=== PATIENT | male | born 1980 | race African-American/Black ===

== ENCOUNTER 2016-11-20 15:05 | Emergency (ER) | payer OTHER ==
--- NOTE | 2016-11-20 15:31 | EDDOCDS ---
Physician Documentation [facility] Name: Jaden Nava Age: 36 yrs Sex: Male : 1980 Arrival Date: 11/20/2016 Time: 15:05 Bed 8 Private MD: YOVANA Alexis Disposition: 11/20/16 15:25 Discharged to Home/Self Care. Impression: Low back pain, Sciatica, left side. - Condition is Stable. - Discharge Instructions: Back Pain, Adult, Musculoskeletal Pain, Sciatica. - Prescriptions for Ibuprofen 600 mg Oral Tablet - take 1 tablet by ORAL route every 6 hours As needed take with food; 30 tablet. Cyclobenzaprine 10 mg Oral Tablet - take 1 tablet by ORAL route 3 times per day As needed; 15 tablet. - Medication Reconciliation, Local Pharmacy Hours, Work Release Form - 4 day form. - Follow up: YOVANA Alexis; When: 4 - 5 days; Reason: Recheck today's complaints, Continuance of care. - Problem is an acute exacerbation. - Symptoms are unchanged. - Notes: ice 20min an hour Historical: - Allergies: PENICILLINS; - Home Meds: 1. none - PMHx: Hypertension; - PSHx: Appendectomy; Left Shoulder Surgery; Shoulder Arthroscopy- Right; - Social history: Smoking status: Patient states former smoker of tobacco. No barriers to communication noted, The patient speaks fluent Malay, Speaks appropriately for age. - Family history: Not pertinent. - : The pt / caregiver states he / she is not on anticoagulants. Home medication list is obtained from the patient. - Exposure Risk Screening:: None identified. Vital Signs: 11/20 15:07 BP 168 / 78; Pulse 73; Resp 18; Temp 97.6(O); Pulse Ox 98% on R/A; Weight 77.11 kg / lr2 170 lbs (R); Height 5 ft. 6 in. (167.64 cm) (R); Pain 5/10; 15:07 Body Mass Index 27.44 (77.11 kg, 167.64 cm) lr2 Signatures: Arturo Guzman, BAG SHAKER BAG SHAKER Viviana SilverioRN RN aa3 Betty Phillips,NOEMÍ RN kc3 MTDD
--- NOTE | 2016-11-20 15:31 | EDDOCDS ---
Nurse's Notes [facility] Name: Jaden Nava Age: 36 yrs Sex: Male : 1980 Arrival Date: 11/20/2016 Time: 15:05 Bed 8 Private MD: Reuben [facility] Diagnosis: Low back pain;Sciatica, left side Presentation: 11/20 15:09 Presenting complaint: Patient states: back pain radiating down left leg since noon kc3 today. Acute neurological deficits are not present. Mechanism of Injury: No Mechanism of Injury. Adult Sepsis Screening: The patient does not have new or worsening altered mentation. Patient's respiratory rate is less than 22. Systolic blood pressure is greater than 100. Patient has a qSOFA score of 0- Negative Sepsis Screen. Suicide/Homicide risk assessment- the patient denies having any suicidal and/or homicidal ideations and does not present with any other emotional, behavioral or mental health complaints. Status: The patient is an active duty septic tank servicer. Transition of care: patient was not received from another setting of care. 15:09 Acuity: TJ Level 4 kc3 15:09 Method Of Arrival: Walkin/Carried/Asstd kc3 Triage Assessment: 15:11 General: Appears in no apparent distress, comfortable, Behavior is appropriate for age, kc3 cooperative. Pain: Location: back Pain currently is 5 out of 10 on a pain scale. HIV screening NA for this visit Offered previously. Respiratory: No deficits noted. Musculoskeletal: Circulation, motion, and sensation intact. Historical: - Allergies: PENICILLINS; - Home Meds: 1. none - PMHx: Hypertension; - PSHx: Appendectomy; Left Shoulder Surgery; Shoulder Arthroscopy- Right; - Social history: Smoking status: Patient states former smoker of tobacco. No barriers to communication noted, The patient speaks fluent Slovenian, Speaks appropriately for age. - Family history: Not pertinent. - : The pt / caregiver states he / she is not on anticoagulants. Home medication list is obtained from the patient. - Exposure Risk Screening:: None identified. Screenin:23 Screening information is obtained from the patient. Fall risk: No risks identified. aa3 Assistance ADL's: requires no assistance with activities of daily living. Abuse/DV Screen: The patient / caregiver reports he/she is: not in a situation that causes fear, pain or injury. Nutritional screening: No deficits noted. Advance Directives: Currently, there is no health care proxy. There is no active DNR order. home support is adequate. Assessment: 15:23 General: Appears in no apparent distress, comfortable, Behavior is appropriate for age, aa3 cooperative. Pain: Location: left lower back, left gluteus enma and left leg Pain currently is 5 out of 10 on a pain scale. Neurological: Level of Consciousness is awake, alert, Oriented to person, place, time. Cardiovascular: Capillary refill < 3 seconds. Respiratory: Airway is patent Respiratory effort is even, unlabored, Respiratory pattern is regular, symmetrical. Derm: Skin is intact, is healthy with good turgor, Skin is pink, warm & dry. Vital Signs: 15:07 BP 168 / 78; Pulse 73; Resp 18; Temp 97.6(O); Pulse Ox 98% on R/A; Weight 77.11 kg (R); lr2 Height 5 ft. 6 in. (167.64 cm) (R); Pain 5/10; 15:07 Body Mass Index 27.44 (77.11 kg, 167.64 cm) lr2 Vitals: 15:07 Log In Time: November 20, 2016 at 15:05. lr2 ED Course: 15:07 Patient visited by Riana Lester. lr2 15:07 Patient moved to Waiting lr2 15:08 YOVANA Alexis is Private Physician. lr2 15:08 Patient moved to Pre RCE lr2 15:10 Triage Initiated kc3 15:11 Patient moved to Triage 2 kc3 15:12 Katelin Saha,RN is Primary Nurse. mlb1 15:12 Patient moved to 8 mlb1 15:15 [facility] ke 15:15 Patient visited by Arturo Guzman FNP. ke 15:15 Patient visited by Arturo Guzman FNP. ke 15:23 The patient / caregiver is instructed regarding the plan of care and ED course. aa3 15:23 No IV's were initiated during this patient's visit. No procedures done that require aa3 assistance. 15:25 Patient visited by Viviana Venegas RN. aa3 15:25 YOVANA Alexis is Referral Physician. ke Order Results: There are currently no results for this order. Outcome: 15:25 Discharge ordered by Provider. 15:30 Discharge Assessment: Patient awake, alert and oriented x 3. No cognitive and/or aa3 functional deficits noted. Patient verbalized understanding of disposition instructions. patient administered narcotics - no. The following High Risk Discharge criteria are identified: None. Discharged to home ambulatory. Condition: good. Discharge instructions given to patient, Instructed on discharge instructions, follow up and referral plans. medication usage, Demonstrated understanding of instructions, medications, Pt was receptive of discharge instructions/ teaching. Prescriptions given X 2, Work note provided to patient. No special radiology studies were completed. Property :Personal belongings accompany Pt. 15:31 Patient left the ED. aa3 Signatures: Arturo Guzman, HEAD OF SALES PROMOTION HEAD OF SALES PROMOTION Fredrick Galan RN RN mlb1 Viviana Venegas RN RN aa3 Betty Phillips,RN RN tom3 Riana Lester2 HERIBERTO
--- NOTE | 2016-11-22 16:31 | EDDOCDS ---
Nurse's Notes [facility] Name: Jaden Nava Age: 36 yrs Sex: Male : 1980 Arrival Date: 11/20/2016 Time: 15:05 Bed 8 Private MD: Reuben [facility] Diagnosis: Low back pain;Sciatica, left side Presentation: 11/20 15:09 Presenting complaint: Patient states: back pain radiating down left leg since noon kc3 today. Acute neurological deficits are not present. Mechanism of Injury: No Mechanism of Injury. Adult Sepsis Screening: The patient does not have new or worsening altered mentation. Patient's respiratory rate is less than 22. Systolic blood pressure is greater than 100. Patient has a qSOFA score of 0- Negative Sepsis Screen. Suicide/Homicide risk assessment- the patient denies having any suicidal and/or homicidal ideations and does not present with any other emotional, behavioral or mental health complaints. Status: The patient is an active duty human services case manager. Transition of care: patient was not received from another setting of care. 15:09 Acuity: TJ Level 4 kc3 15:09 Method Of Arrival: Walkin/Carried/Asstd kc3 Triage Assessment: 15:11 General: Appears in no apparent distress, comfortable, Behavior is appropriate for age, kc3 cooperative. Pain: Location: back Pain currently is 5 out of 10 on a pain scale. HIV screening NA for this visit Offered previously. Respiratory: No deficits noted. Musculoskeletal: Circulation, motion, and sensation intact. Historical: - Allergies: PENICILLINS; - Home Meds: 1. none - PMHx: Hypertension; - PSHx: Appendectomy; Left Shoulder Surgery; Shoulder Arthroscopy- Right; - Social history: Smoking status: Patient states former smoker of tobacco. No barriers to communication noted, The patient speaks fluent Guinean, Speaks appropriately for age. - Family history: Not pertinent. - : The pt / caregiver states he / she is not on anticoagulants. Home medication list is obtained from the patient. - Exposure Risk Screening:: None identified. Screenin:23 Screening information is obtained from the patient. Fall risk: No risks identified. aa3 Assistance ADL's: requires no assistance with activities of daily living. Abuse/DV Screen: The patient / caregiver reports he/she is: not in a situation that causes fear, pain or injury. Nutritional screening: No deficits noted. Advance Directives: Currently, there is no health care proxy. There is no active DNR order. home support is adequate. Assessment: 15:23 General: Appears in no apparent distress, comfortable, Behavior is appropriate for age, aa3 cooperative. Pain: Location: left lower back, left gluteus enma and left leg Pain currently is 5 out of 10 on a pain scale. Neurological: Level of Consciousness is awake, alert, Oriented to person, place, time. Cardiovascular: Capillary refill < 3 seconds. Respiratory: Airway is patent Respiratory effort is even, unlabored, Respiratory pattern is regular, symmetrical. Derm: Skin is intact, is healthy with good turgor, Skin is pink, warm & dry. Vital Signs: 15:07 BP 168 / 78; Pulse 73; Resp 18; Temp 97.6(O); Pulse Ox 98% on R/A; Weight 77.11 kg (R); lr2 Height 5 ft. 6 in. (167.64 cm) (R); Pain 5/10; 15:07 Body Mass Index 27.44 (77.11 kg, 167.64 cm) lr2 Vitals: 15:07 Log In Time: November 20, 2016 at 15:05. lr2 ED Course: 15:07 Patient visited by Riana Lester. lr2 15:07 Patient moved to Waiting lr2 15:08 Reuben [facility] is Private Physician. lr2 15:08 Patient moved to Pre RCE lr2 15:10 Triage Initiated kc3 15:11 Patient moved to Triage 2 kc3 15:12 Katelin Saha,RN is Primary Nurse. mlb1 15:12 Patient moved to 8 mlb1 15:15 Arturo Guzman FNP [facility]. ke 15:15 Patient visited by Arturo Guzman FNP. ke 15:15 Patient visited by Arturo Guzman FNP. ke 15:23 The patient / caregiver is instructed regarding the plan of care and ED course. aa3 15:23 No IV's were initiated during this patient's visit. No procedures done that require aa3 assistance. 15:25 Patient visited by Viviana Venegas RN. aa3 15:25 KARO Alexis is Referral Physician. ke 15:40 [facility] Payment Agreement was scanned into [employer] and attached to record. 11/21 09:43 T-Sheet-- Draft Copy was scanned into [employer] and attached to record. [facility] Order Results: There are currently no results for this order. Outcome: 11/20 15:25 Discharge ordered by Provider. manda 15:30 Discharge Assessment: Patient awake, alert and oriented x 3. No cognitive and/or aa3 functional deficits noted. Patient verbalized understanding of disposition instructions. patient administered narcotics - no. The following High Risk Discharge criteria are identified: None. Discharged to home ambulatory. Condition: good. Discharge instructions given to patient, Instructed on discharge instructions, follow up and referral plans. medication usage, Demonstrated understanding of instructions, medications, Pt was receptive of discharge instructions/ teaching. Prescriptions given X 2, Work note provided to patient. No special radiology studies were completed. Property :Personal belongings accompany Pt. 15:31 Patient left the ED. aa3 Signatures: Justin Davis, Reg Reg Arturo Guzman, RETAIL OPERATIONS SPECIALIST RETAIL OPERATIONS SPECIALIST Fredrick Galan RN RN mlb1 Viviana Venegas RN RN aa3 Betty Phillips RN RN kc3 Rupinder, Riana Dubose Chart Complete MTDD
--- NOTE | 2016-11-22 16:31 | EDDOCDS ---
Physician Documentation [facility] Name: Jaden Nava Age: 36 yrs Sex: Male : 1980 Arrival Date: 11/20/2016 Time: 15:05 Bed 8 Private MD: YOVANA Alexis Disposition: 11/20/16 15:25 Discharged to Home/Self Care. Impression: Low back pain, Sciatica, left side. - Condition is Stable. - Discharge Instructions: Back Pain, Adult, Musculoskeletal Pain, Sciatica. - Prescriptions for Ibuprofen 600 mg Oral Tablet - take 1 tablet by ORAL route every 6 hours As needed take with food; 30 tablet. Cyclobenzaprine 10 mg Oral Tablet - take 1 tablet by ORAL route 3 times per day As needed; 15 tablet. - Medication Reconciliation, Local Pharmacy Hours, Work Release Form - 4 day form. - Follow up: YOVANA Alexis; When: 4 - 5 days; Reason: Recheck today's complaints, Continuance of care. - Problem is an acute exacerbation. - Symptoms are unchanged. - Notes: ice 20min an hour Historical: - Allergies: PENICILLINS; - Home Meds: 1. none - PMHx: Hypertension; - PSHx: Appendectomy; Left Shoulder Surgery; Shoulder Arthroscopy- Right; - Social history: Smoking status: Patient states former smoker of tobacco. No barriers to communication noted, The patient speaks fluent Maori, Speaks appropriately for age. - Family history: Not pertinent. - : The pt / caregiver states he / she is not on anticoagulants. Home medication list is obtained from the patient. - Exposure Risk Screening:: None identified. Vital Signs: 11/20 15:07 BP 168 / 78; Pulse 73; Resp 18; Temp 97.6(O); Pulse Ox 98% on R/A; Weight 77.11 kg / lr2 170 lbs (R); Height 5 ft. 6 in. (167.64 cm) (R); Pain 5/10; 15:07 Body Mass Index 27.44 (77.11 kg, 167.64 cm) lr2 MDM: 15:40 [facility] Payment Agreement was scanned into [employer] and attached to record. lg 15:49 Financial registration complete. zo 11/21 09:43 T-Sheet-- Draft Copy was scanned into [employer] and attached to record. [facility] Signatures: Justin Davis, Reg Reg lg Arturo Guzman, CLINICAL SUPPORT TECH Chase Noel AbbyRN RN aa3 Betty Phillips RN RN kc3 Rupinder, Jyothi [facility] The chart was reviewed and I authenticate all verbal orders and agree with the evaluation and treatment provided.Attachments: 11/20 15:40 [facility] Payment Agreement lg 11/21 09:43 T-Sheet-- Draft Copy [facility] Chart Complete MTDD
--- NOTE | 2016-11-22 16:31 | EDDOCDS ---
Physician Documentation [facility] Name: Jaden Nava Age: 36 yrs Sex: Male : 1980 Arrival Date: 11/20/2016 Time: 15:05 Bed 8 Private MD: YOVANA Alexis Disposition: 11/20/16 15:25 Discharged to Home/Self Care. Impression: Low back pain, Sciatica, left side. - Condition is Stable. - Discharge Instructions: Back Pain, Adult, Musculoskeletal Pain, Sciatica. - Prescriptions for Ibuprofen 600 mg Oral Tablet - take 1 tablet by ORAL route every 6 hours As needed take with food; 30 tablet. Cyclobenzaprine 10 mg Oral Tablet - take 1 tablet by ORAL route 3 times per day As needed; 15 tablet. - Medication Reconciliation, Local Pharmacy Hours, Work Release Form - 4 day form. - Follow up: YOVANA Alexis; When: 4 - 5 days; Reason: Recheck today's complaints, Continuance of care. - Problem is an acute exacerbation. - Symptoms are unchanged. - Notes: ice 20min an hour Historical: - Allergies: PENICILLINS; - Home Meds: 1. none - PMHx: Hypertension; - PSHx: Appendectomy; Left Shoulder Surgery; Shoulder Arthroscopy- Right; - Social history: Smoking status: Patient states former smoker of tobacco. No barriers to communication noted, The patient speaks fluent Tajik, Speaks appropriately for age. - Family history: Not pertinent. - : The pt / caregiver states he / she is not on anticoagulants. Home medication list is obtained from the patient. - Exposure Risk Screening:: None identified. Vital Signs: 11/20 15:07 BP 168 / 78; Pulse 73; Resp 18; Temp 97.6(O); Pulse Ox 98% on R/A; Weight 77.11 kg / lr2 170 lbs (R); Height 5 ft. 6 in. (167.64 cm) (R); Pain 5/10; 15:07 Body Mass Index 27.44 (77.11 kg, 167.64 cm) lr2 MDM: 15:40 [facility] Payment Agreement was scanned into [employer] and attached to record. lg 15:49 Financial registration complete. zo 11/21 09:43 T-Sheet-- Draft Copy was scanned into [employer] and attached to record. [facility] Signatures: Justin Davis, Reg Reg lg Arturo Guzman, ELECTRONIC REPAIR TROUBLESHOOTER Chase Noel AbbyRN RN aa3 Betty Phillips RN RN kc3 Rupinder, Jyothi [facility] The chart was reviewed and I authenticate all verbal orders and agree with the evaluation and treatment provided.Attachments: 11/20 15:40 [facility] Payment Agreement lg 11/21 09:43 T-Sheet-- Draft Copy [facility] Chart Complete MTDD
== END 2016-11-20 15:31 | disposition home or self-care (01) ==
LOC: M ED 15:05
DX: M54.32 Sciatica, left side (principal); I10 Essential (primary) hypertension; Z87.891 Personal history of nicotine dependence; Z88.0 Allergy status to penicillin